=== PATIENT | female | born 1975 | race American Indian/Alaskan Native ===

== ENCOUNTER 2017-12-21 13:54 | Outpatient (CLI) | payer OTHER ==
--- NOTE | 2017-12-21 15:44 | Magnetic Resonance Report ---
MRI OF THE BRAIN WITHOUT CONTRAST: HISTORY: Cervical radiculopathy, pain PROCEDURE: Multiplanar, multisequence MR imaging of the brain without IV contrast was performed. FINDINGS: The brain parenchyma signal intensity and its zarco white interface are within normal limits on all sequences. No evidence for acute ischemia, hemorrhage or mass. No chronic infarct or extra-axial fluid collection. The midline structures are central. The basal cisterns are patent. Normal ventricular size. The orbital cavities and sella turcica demonstrate no abnormality. The visualized paranasal sinuses and mastoid air cells are well aerated. IMPRESSION: Unremarkable non-enhanced MRI of the brain.
--- NOTE | 2017-12-22 07:47 | Magnetic Resonance Report ---
MR CERVICAL SPINE WITHOUT CONTRAST HISTORY: Cervical radiculopathy. TECHNIQUE: Axial T2 and T2 gradient. Sagittal T1, T2 and STIR. COMPARISON: None. FINDINGS: The cervical spinal cord is normal size and signal intensity throughout. No abnormal intramedullary signal is detected. Normal height and alignment of the cervical vertebral bodies. Normal bone marrow signal. There is mild diffuse disc desiccation without significant narrowing. The facet joints are in appropriate relationship. No significant joint pathology or hypertrophic changes. The paraspinal soft tissues are within normal limits. C2-3: No abnormality. C3-4: No abnormality. C4-5: No abnormality. C5-6: A focal midline annular tear and medium sized central disc protrusion are identified. The protrusion abuts and minimally displaces the anterior surface of the spinal cord. This protrusion appears to minimally lateralize to the left side. I would suspect radicular symptoms on the left side on given the images. There is mild central canal narrowing at this level measuring 8.6 mm in AP dimension. C6-7: A focal midline annular tear and a tiny disc protrusion without mass effect are identified. C7-T1: No abnormality. IMPRESSION: Minimal early diffuse disc disease. Midline annular tear and disc protrusion at C5-6 with mild mass effect and central canal narrowing as described. Midline annular tear and tiny disc protrusion at C6-7 without apparent mass effect.
== END 2017-12-21 13:55 | disposition home or self-care (01) ==
LOC: MRI 13:54
PROVIDERS: ATTEND Psychiatry & Neurology Neurology
DX: M50.223 Other cervical disc displacement at C6-C7 level (principal); M54.12 Radiculopathy, cervical region; R51 Headache; M50.30 Other cervical disc degeneration, unspecified cervical region
CPT/HCPCS: 70551; 72141